=== PATIENT | female | born 1990 | race Caucasian/White ===

== ENCOUNTER 2017-09-15 01:25 | Emergency (ER) | payer BC, OTHER ==
[~2017-09-15] VITALS: Ht 162.6 cm; Wt 47.6 kg
[2017-09-15] MEDS ORDERED: NABUMETONE 500500 M1 (01:40)
[2017-09-15 01:52] LABS: URINE BILIRUBIN NEGATIVE (Negative); URINE BLOOD NEGATIVE (Negative); URINE CLARITY CLEAR; URINE COLOR YELLOW; URINE GLUCOSE-RANDOM NEGATIVE (Negative); URINE KETONES 1+ (Negative); URINE LEUKOCYTES-REFLEX NEGATIVE (Negative); URINE NITRITE-REFLEX NEGATIVE (Negative); URINE PROTEIN NEGATIVE (Negative); URINE UROBILINOGEN 0.2 E.U./dl (0.2-1.0)
[2017-09-15 02:09] LABS: ABSOLUTE LYMPHOCYTES 0.9 thou/uL (0.8-5.3); ABSOLUTE MONOCYTES 0.6 thou/uL (0.0-1.2); ABSOLUTE NEUTROPHILS 6.1 thou/uL (1.6-8.1); BASOPHILS 0.3 %; HEMATOCRIT 36.4 % (37.0-47.0); HEMOGLOBIN 12.5 gm/dL (12.0-15.0); LYMPHOCYTES 11.5 %; MCH 30.5 pg (26.0-34.0); MCHC 34.3 g/dL (28.0-37.0); MCV 88.9 fL (80.0-100.0); MONOCYTES 7.7 %; NUCLEATED RBCS 0 /100WBC; PLATELET COUNT* 139 thou/uL (150-400); POLYS 80.5 %; RBC 4.09 mil/uL (4.20-5.00); RDW-CV 13.2 % (10.5-14.5); WBC 7.6 thou/uL (4.0-11.0)
[2017-09-15 02:16] LABS: CALCIUM 8.9 mg/dL (8.5-10.1); CREATININE 0.8 mg/dL (0.6-1.3); POTASSIUM 4.1 mmol/L (3.5-5.1)
[2017-09-15 02:21] LABS: ALBUMIN 4.2 g/dL (3.4-5.0); TOTAL BILIRUBIN 0.9 mg/dL (<0.1-1.0); TOTAL PROTEIN 7.4 g/dL (6.4-8.2)
[2017-09-15] MEDS ORDERED: TORADOL 10 MG T10 MG PO (04:09)
[2017-09-15] MEDS ORDERED: BUTALB-APAP-CA1 EACH PO (04:09)
[2017-09-15] MEDS ORDERED: ACETAMINOPHEN-1 EAC1 PO (04:09)
[2017-09-15] MEDS ORDERED: CYCLOBENZAPRINE5 MG PO (04:11)
[2017-09-15] MEDS ORDERED: ZOFRAN ODT4 MG PO (04:19)
[2017-09-15 04:22] VITALS: BP 117/73
== END 2017-09-15 04:27 | disposition home or self-care (01) ==
LOC: M.ERS 01:25
PROVIDERS: Personal Emergency Response Attendant
DX: N83.202 Unspecified ovarian cyst, left side (principal); G43.909 Migraine, unspecified, not intractable, without status migrainosus; Z88.1 Allergy status to other antibiotic agents

== ENCOUNTER 2019-04-07 07:44 | Emergency (ER) | payer OTHER ==
[~2019-04-07] VITALS: Ht 162.6 cm; Wt 51.7 kg
[~2019-04-07 07:44] MED LIST: ACETAMINOPHEN-1 EAC1 PO; BUTALB-APAP-CA1 EACH PO; CYCLOBENZAPRINE5 MG PO; NABUMETONE 500500 M1; TORADOL 10 MG T10 MG PO; ZOFRAN ODT4 MG PO
[2019-04-07] MEDS ORDERED: IBU600 MG PO (07:50)
[2019-04-07 08:23] LABS: HEMATOCRIT 39.4 % (37.0-47.0); MCH 30.7 pg (26.0-34.0); MCHC 35.4 g/dL (28.0-37.0); MCV 86.6 fL (80.0-100.0); NUCLEATED RBCS 0 /100WBC; PLATELET COUNT* 162 thou/uL (150-400); RBC 4.55 mil/uL (4.20-5.00); RDW-CV 12.4 % (10.5-14.5); WBC 6.8 thou/uL (4.0-11.0)
[2019-04-07 08:30] LABS: ANION GAP 12 mmol/L (7-16); BUN 18 mg/dL (7-18); CALCIUM 8.7 mg/dL (8.5-10.1); CHLORIDE 103 mmol/L (98-107); CO2 22 mmol/L (21-32); GLUCOSE 100 mg/dL (70-99); POTASSIUM 3.8 mmol/L (3.5-5.1); SODIUM 137 mmol/L (136-145)
[2019-04-07] MEDS ORDERED: FLEXERIL PO (08:40)
[2019-04-07] MEDS ORDERED: NORCO 5-325 TA1 EAC1 PO (08:40)
[2019-04-07 08:42] LABS: ALBUMIN 4.2 g/dL (3.4-5.0); ALKALINE PHOSPHATASE 60 U/L (46-116); CK-MB MASS < 0.5 ng/mL (<0.5-3.6); LIPASE 121 U/L (73-393); MAGNESIUM 1.8 mg/dL (1.8-2.4); NT-PRO BRAIN NAT PEPTIDE 80 pg/mL (<300); SGOT 13 U/L (15-37); SGPT 23 U/L (30-65); TOTAL BILIRUBIN 1.1 mg/dL (<0.1-1.0); TOTAL PROTEIN 7.8 g/dL (6.4-8.2)
[2019-04-07 08:43] LABS: APTT 25.9 Seconds (25.0-31.3); INR 1.2
[2019-04-07 08:53] LABS: ABSOLUTE LYMPHOCYTES 0.5 thou/uL (0.8-5.3); ABSOLUTE NEUTROPHILS 6.3 thou/uL (1.6-8.1); PLATELET ESTIMATE ADEQUATE
[2019-04-07 09:21] VITALS: BP 107/65
--- NOTE | 2019-04-08 11:18 | EKG ---
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 : 1990 Requested By: Joe Blount Order Number: [id number] MD: Andreas Reynoso Measurements Intervals [place] Rate: 132 P: 79 PA: 112 QRS: 86 QRSD: 91 T: -78 QT: 293 QTc: 434 Interpretive Statements Sinus tachycardia baseline wander Left atrial enlargement RSR' in V1 or V2, right VCD or RVH Nonspecific repol abnormality, lateral leads No previous ECG available for comparison Electronically Signed On 04-08-2019 11:17:48 [employer] by Andreas Reynoso [email or web address] <ELECTRONICALLY SIGNED> By: Andreas Reynoso MD, [facility] 04/08/19 [id number] Andreas Reynoso MD, FAC /EPI
== END 2019-04-07 09:22 | disposition home or self-care (01) ==
LOC: M.ERS 07:44
PROVIDERS: Family Medicine
DX: R07.89 Other chest pain (principal); M54.5 Low back pain; G43.909 Migraine, unspecified, not intractable, without status migrainosus; Z88.1 Allergy status to other antibiotic agents